=== PATIENT | female | born 1945 | race Caucasian/White ===

== ENCOUNTER 2016-11-09 10:30 | Observation (INO) | payer OTHER ==
[2016-11-09] MEDS ORDERED: ONDANSETRON DISINTEGRATING 4 MG TAB PO PRN (11:03)
[2016-11-09] MEDS ORDERED: ONDANSETRON 4 MG/2 ML VIAL IVP PRN (11:03)
[2016-11-09] MEDS ORDERED: ACETAMINOPHEN 325 MG TAB PO PRN (11:03)
[2016-11-09] MEDS ORDERED: NS 500 ML IV ONE (11:11)
[2016-11-09 12:28] LABS: % IMMATURE GRANULYOCYTES 0.3 % (0.0-1.1); ABSOLUTE IMMATURE GRANULOCYTES 0.04 10^3/uL (0.00-0.10); ADD DIFF? NO; ADD MORPH? NO; ADD SCAN? NO; ATYPICAL LYMPHOCYTE FLAG 0 (0-99); FRAGMENT RBC FLAG 0 (0-99); HEMATOCRIT 40.9 % (38.0-47.0); HEMOGLOBIN 13.9 g/dL (12.6-16.3); LEFT SHIFT FLG 0 (0-99); LIPEMIA HEMOLYSIS FLAG 90 (0-99); MEAN CELL HEMOGLOBIN 31.4 pg (27.9-34.1); MEAN CELL VOLUME 92.3 fL (81.5-99.8); MEAN PLATELET VOLUME 8.9 fL (8.7-11.7); PLATELET CLUMPS FLAG 0 (0-99); PLATELET COUNT 174 10^3/uL (150-400); RED BLOOD CELL COUNT 4.43 10^6/uL (4.18-5.33)
[2016-11-09 12:45] LABS: ALANINE AMINOTRANSFERASE 40 IU/L (9-52); ALBUMIN 4.1 g/dL (3.5-5.0); ALKALINE PHOSPHATASE 68 IU/L (38-126); ANION GAP 13 mEq/L (8-16); ASPARTATE AMINOTRANSFERASE 29 IU/L (14-46); BILIRUBIN,TOTAL 1.4 mg/dL (0.1-1.4); CALCIUM 9.5 mg/dL (8.5-10.4); CARBON DIOXIDE 24 mEq/l (22-31); CHLORIDE 101 mEq/L (97-110); CREATININE 0.9 mg/dL (0.6-1.0); GLOMERULAR FILTRATION RATE > 60; GLUCOSE 94 mg/dL (70-100); SODIUM 138 mEq/L (134-144); TOTAL PROTEIN 6.9 g/dL (6.3-8.2)
[2016-11-09] MEDS ORDERED: IOPAMIDOL (ISOVUE 370) 100 ML BTL IV ONE (13:14)
[2016-11-09] MEDS: NS 1,000 ML IV SCH (14:48)
[2016-11-09] MEDS ORDERED: NON-FORMULARY NEW DRUG (Lamotrigine [Lamictal] 200 MG) PO SCH (17:33)
[2016-11-09] MEDS: AMPICILLIN/SULBACTAM 3 GM in NS 100 ML IV SCH (17:37)
[2016-11-09] MEDS: lamoTRIgine 100 MG TAB PO SCH ×2 (17:56→21:39)
[2016-11-09] MEDS: levETIRAcetam 500 MG TAB PO SCH (21:39)
--- NOTE | 2016-11-09 21:39 | GHP ---
[f rep st] HISTORY AND PHYSICAL DATE OF ADMISSION: 11/09/2016 REASON FOR ADMISSION: Bright red blood per rectum. HISTORY OF PRESENT ILLNESS: The patient is a 71-year-old female with a history of seizure disorder who presents with bright red blood per rectum. She noted some spotting on the toilet paper yesterday, came in for evaluation today with a pint jar containing a half inch of bright red blood. She states she has had 4 or 5 stools like that the morning of admission. She has had some abdominal pain. The day prior to admission, she had abdominal pain in her lower abdomen, worse when she could not move or sit up. CURRENT MEDICATIONS: Escitalopram 20 mg daily. Estradiol 0.05 mg Vivelle-Dot twice a week. Lamictal 200mg t.i.d., Keppra 500 mg daily at 1400, Keppra 1250 mg b.i.d., progesterone 100 mg p.o. daily. REVIEW OF SYSTEMS: She has been doing reasonably well. She is on a ketogenic diet to try to improve her memory. She does get some regular exercise. She is otherwise in good health. She does have a somewhat elevated coronary calcium score. Review of systems is pertinent to the Present Illness. She also has some ongoing issues of concern about her memory. PHYSICAL EXAMINATION: GENERAL: 71-year-old female who appears appropriate for stated age. VITAL SIGNS: Blood pressure 108/56, which is a little bit lower than her baseline. It was down to 88 in the office systolic when she was seen. Pulse rate is 84. Oxygen saturation is 99% on room air. Temperature is 99 degrees Fahrenheit. HEENT: Pupils are equal and reactive to light. LUNGS: Clear. HEART: Regular rate and rhythm. ABDOMEN: Mild lower abdominal tenderness. EXTREMITIES: Peripheral pulses are intact. She has no peripheral edema. IMPRESSION: Bright red blood per stool, rule out diverticulitis considering her abdominal tenderness. PLAN: Will admit. Will proceed with a CT of the abdomen and pelvis. Will get a GI consultation. Will resuscitate with fluids and will follow closely. /[id number]/MODL MTDD
[2016-11-10] MEDS: NS 1,000 ML IV SCH (00:17)
[2016-11-10 00:20] VITALS: RESP 14
[2016-11-10] MEDS: AMPICILLIN/SULBACTAM 3 GM in NS 100 ML IV SCH ×2 (00:24→05:15)
[2016-11-10 08:02] VITALS: BP 104/55; PULSE 76; TEMP 98.1; O2SAT 91
[2016-11-10] MEDS ORDERED: AMOXICILLIN/CLAVULANATE POT 875/125 MG TAB PO SCH (09:00)
[2016-11-10] MEDS ORDERED: NATURE THROID 97.5 MG PO SCH (09:00)
[2016-11-10] MEDS ORDERED: ESCITALOPRAM OXALATE 10 MG TAB PO SCH (09:00)
[2016-11-10] MEDS ORDERED: NON-FORMULARY NEW DRUG (Escitalopram Oxalate [Lexapro] 20 MG) PO SCH (09:00)
[2016-11-10] MEDS ORDERED: MAGNESIUM OXIDE 400 MG TAB PO SCH (09:00)
[2016-11-10] MEDS ORDERED: TOBRAMYCIN 0.3% 5 ML OPHT.BTL RTEYE SCH (10:00)
[2016-11-10] MEDS: lamoTRIgine 100 MG TAB PO SCH (10:41)
[2016-11-10] MEDS: levETIRAcetam 500 MG TAB PO SCH (10:42)
--- NOTE | 2016-11-10 11:57 | ASDISCHSUM ---
Discharge Information Plan Status:Home with No Needs Medically Cleared to Leave:11/10/2016 Discharge Date:11/10/2016 10:20 AM CM D/C Disposition:Home, Routine, Self-Care ADT D/C Disposition:Home, Routine, Self-Care Projected Discharge Date:11/10/2016 12:00 AM Transportation at D/C: Discharge Delay Reason: Follow-Up Date:11/10/2016 12:00 AM Discharge Slot: Final Diagnosis: Placement Information Patient Contact Information Contact Name:KNOWNUN Relationship: Address: Home Phone: Work Phone: City: Alternate Phone: State/Zip Code: Email: Financial Information Financial Class:Medicare Advantage Plans Primary Plan Desc:[employer] Primary Plan Number:[id number] Secondary Plan Desc: Secondary Plan Number: Assessment Information Intervention Information
[2016-11-10] MEDS ORDERED: metroNIDAZOLE 500 MG TAB PO SCH (14:00)
[2016-11-10] MEDS ORDERED: levETIRAcetam 500 MG TAB PO SCH (14:00)
[2016-11-11] MEDS ORDERED: ESTRADIOL VIVELLE 0.05 MG PATCH TD SCH (08:00)
[2016-11-11] MEDS ORDERED: PROGESTERONE,MICR 100 MG CAP PO SCH (17:33)
== END 2016-11-10 10:20 | disposition home or self-care (01) ==
LOC: F3E 10:53 → INTOOBSV 11:03 → OBSVTOIN 11:03
PROVIDERS: ADMIT Internal Medicine; ATTEND Internal Medicine
DX: K52.9 Noninfective gastroenteritis and colitis, unspecified (principal); G40.909 Epilepsy, unspecified, not intractable, without status epilepticus
CPT/HCPCS: 74178; G0378; J0295; Q9967

== ENCOUNTER 2017-07-07 22:30 | Emergency (ER) | payer OTHER ==
--- NOTE | 2017-07-07 22:52 | EDPHY ---
H & P Stated Complaint: Mech fall, hit head, -LOC, hx head injury, wants to be checked. Time Seen by Provider: 07/07/17 22:51 HPI/ROS: HPI: This is a 72-year-old female who presents with Chief Complaint:Mech fall, hit head, -LOC, hx head injury, wants to be checked. Location: Right frontal Quality: Injury Duration: Prior to arrival Signs and Symptoms: No LOC, no fever, no nausea, no vomiting, no photophobia, no noise sensitivity, no neck stiffness, no ear pain, no tinnitus, no nasal congestion, no sinus pressure, no weakness, no radiation, no aura Timing: Acute Severity: Mild Context: Patient has a history of epilepsy and prior head injuries but denies concussion presents with complaints of tripping over the curb while walking home from a political event at her neighbor's house for houses down from her own. She reports that there were not any street lights and was dark out. She did not see the curb and accidentally tripped over it. She reports that she fell forward hitting the right frontal part of her forehead. She denies LOC/ amnesia/nausea/vomiting/dizziness. She reports that she was ambulatory at the scene, walked home and then had a friend drive her to the emergency room for further evaluation. She denies any neck pain/neck stiffness/radiculopathy/ weakness. She is ambulatory without deficits. She does not take any blood thinners. No history of prior concussions. Patient reports that she feels at her baseline. Modifying Factors: None Comment: ROS: see HPI Constitutional: No fever, no chills, no weight loss Eyes: No blurred vision Respiratory: No shortness of breath, no cough Cardiovascular: No chest pain, no palpitations Gastrointestinal: No nausea, no vomiting, no diarrhea, no hematemesis, no blood in stool Genitourinary: No dysuria, no blood in urine Extremities: No myalgias, no edema Neurologic: No weakness, no numbness Skin: No rashes, no petechiae Hematologic: No bruising, no bleeding MEDICAL/SURGICAL/SOCIAL HISTORY: Medical history: epilepsy, hormone replacement therapy, hypothyroid, head injury. Surgical history: Denies Social history: Retired. of 5 years. Family history noncontributory. CONSTITUTIONAL: Extremely well-appearing pleasant elderly white female who appears younger than stated age, awake and alert, no obvious distress HEENT: Atraumatic and normocephalic, PERRL, EOMI. no globe entrapment, no raccoon eyes. no De Paz signs.Tympanic membranes clear. No tympanic membrane rupture. Nares patent; no septal hematoma. Oropharynx clear, no exudate and moist pink mucosa. No malocclusion. no dental trauma. Airway patent. No lymphadenopathy. NECK: supple, no midline tenderness, flexion 45 degrees, extension 45 degrees, right and left lateral flexion 45 degrees. No meningismus. Cardiovascular: Normal S1/S2, regular rate, regular rhythm, without murmur rub or gallop. PULMONARY/CHEST: Symmetrical and nontender. no crepitus. Clear to auscultation bilaterally. Good air movement. No accessory muscle usage. ABDOMEN: Soft, nondistended, nontender, no ecchymosis, no rebound, no guarding , no peritoneal signs, no masses or organomegaly. No CVAT. PELVIC: no pain with rocking; bilateral hips flexion 125 degrees, extension 30 degrees, with no pain internal rotation and no pain external rotation. BACK: No midline tenderness, no paraspinous spasm, deep tendon reflexes 2/2, no pain with straight leg raise EXTREMITIES: 2/2 pulses, no deformities, no clubbing, no cyanosis or edema. NEUROLOGICAL: no focal neuro deficits. GCS 15. SKIN: Warm and dry, no erythema. no rash. Good capillary refill. Source: Patient Exam Limitations: No limitations - Personal History Current Tetanus/Diphtheria Vaccine: Unsure Current Tetanus Diphtheria and Acellular Pertussis (TDAP): Unsure - Medical/Surgical History Hx Asthma: No Hx Chronic Respiratory Disease: No Hx Diabetes: No Hx Cardiac Disease: No Hx Renal Disease: No Hx Cirrhosis: No Hx Alcoholism: No Hx HIV/AIDS: No Hx Splenectomy or Spleen Trauma: No Other PMH: epilepsy, hormone replacement therapy, hypothyroid, head injury. - Social History Smoking Status: Former smoker Constitutional: Initial Vital Signs Temperature (C) 37.0 C 07/07/17 22:35 Heart Rate 71 07/07/17 22:35 Respiratory Rate 16 07/07/17 22:35 Blood Pressure 163/77 H 07/07/17 22:35 O2 Sat (%) 97 07/07/17 22:35 O2 Delivery Mode Room Air Allergies/Adverse Reactions: carbamazepine [From Tegretol] Allergy (Verified 11/09/16 12:28) phenytoin [From Dilantin] Allergy (Verified 11/09/16 11:03) Home Medications: Medication Instructions Recorded Nature-Throid 97.5mg 97.5 mg PO DAILY 11/10/16 RX: Acetaminophen [Tylenol 325mg 650 mg PO Q4HRS PRN #0 tab 11/10/16 (*)] RX: Escitalopram Oxalate [Lexapro 20 mg PO DAILY #0 tab 11/10/16 10 MG] RX: Estradiol [Vivelle-Dot 0.05MG 0.05 mg TD SuTh@0800 #0 patch 11/10/16 (*)] RX: Progesterone,Micronized 100 mg PO SUTH #0 cap 11/10/16 [Prometrium] RX: lamoTRIgine [LamICTAL 100 MG 200 mg PO TID #0 tab 11/10/16 (*)] RX: levETIRAcetam [Keppra 500 mg 1,250 mg PO BID #0 tab 11/10/16 (*)] RX: levETIRAcetam [Keppra 500 mg 500 mg PO DAILY@14 #0 tab 11/10/16 (*)] Medical Decision Making - Diagnostics Imaging Results: Imaging Impressions Head CT 07/07/17 22:59 Impression: 1. Mild age-related atrophy. 2. No hemorrhage, mass effect, or definite acute peripheral infarct. If symptoms worsen, additional imaging may be necessary. Findings discussed with Sania Blood PAC at 23:17 hour, 07/07/2017. ED Course/Re-evaluation: Based on [facility] CT head protocol; patient greater than 65 years of age; head CT scan ordered. Discussed this with patient and patient was insistent and agreed with her ordering the head CT scan. Patient denies any neck pain/decreased range of motion and politely declined CT cervical scan which I feels appropriate. No LOC. No neurological deficits. No signs of neurovascular compromise/tenting of skin/compartment syndrome/ extremities and joints examined above and below area of concern and are neurovascularly intact. Called by radiologist who advised that head CT scan shows no acute intracranial process. Discussed imaging results to patient, concussion precautions, PCP follow-up. This patient was seen under the supervision of my secondary supervising physician. I evaluated care for this patient independently. Differential Diagnosis: Head injury including but not limited to concussion, skull fracture, intraparenchymal contusion, subarachnoid, subdural and epidural hematoma. Departure - Departure Disposition: Home, Routine, Self-Care Clinical Impression: Head injury without concussion or intracranial hemorrhage Qualifiers: Encounter type: initial encounter Qualified Code(s): S09.90XA - Unspecified injury of head, initial encounter Condition: Good Instructions: Concussion (ED), Head Injury (ED) Additional Instructions: Head CT scan today shows no acute intracranial process. There are no signs of fracture or bleeding. Take Tylenol 650 mg every 4 hours and/or Ibuprofen 600 mg every 8 hours with food as needed for pain. Apply ice for 30 minutes at a time; 2-3 times per day for the next 1-2 days. Please observe concussion precautions until cleared by your primary care physician in 3-5 days. Return to the ER immediately if you have progressive headaches, neurologic deficits, gait abnormality, visual disturbance, slurred speech, or any other symptom that concerns you. Referrals: Ashish Rodriguez MD [Primary Care Provider] - 2-3 days without fail
[2017-07-07 23:44] VITALS: BP 132/69
== END 2017-07-07 23:44 | disposition home or self-care (01) ==
DX: S09.90XA Unspecified injury of head, initial encounter (principal); Z87.891 Personal history of nicotine dependence; W01.198A Fall on same level from slipping, tripping and stumbling with subsequent striking against other object, initial encounter; Y92.009 Unspecified place in unspecified non-institutional (private) residence as the place of occurrence of the external cause; Y99.8 Other external cause status; Y93.01 Activity, walking, marching and hiking